=== PATIENT | female | born 1985 | race Caucasian/White ===

== ENCOUNTER 2017-08-02 18:08 | Emergency (ER) | payer OTHER ==
[2017-08-02] MEDS ORDERED: SODIUM CHLORIDE 0.9% 1,000 ML IV ONE ×2 (18:29)
[2017-08-02 18:50] LABS: BASOPHILS % (AUTO) 0.2 %; EOSINOPHILS # (AUTO) 0.1 10^3/uL (0.0-0.7); HGB - HEMOGLOBIN 9.5 g/dL (12.0-16.0); LYMPHOCYTES # (AUTO) 1.3 10^3/uL (1.5-3.5); LYMPHOCYTES % (AUTO) 15.2 %; MEAN CORPUSCULAR HEMOGLOBIN 23.8 pg (27.0-31.0); MEAN CORPUSCULAR HGB CONC 32.1 g/dL (32.0-36.0); MEAN CORPUSCULAR VOLUME 73.9 fL (81.0-99.0); MEAN PLATELET VOLUME 6.1 fL (7.9-10.8); MONOCYTES # (AUTO) 0.5 10^3/uL (0.0-1.0); MONOCYTES % (AUTO) 5.7 %; NEUTROPHILS # (AUTO) 6.7 10^3/uL (1.5-6.6); NEUTROPHILS % (AUTO) 77.9 %; PLT - PLATELET COUNT 500 10^3/uL (130-450); RED BLOOD COUNT 3.99 10^6/uL (4.20-5.40); RED CELL DISTRIBUTION WIDTH 15.9 % (12.0-15.0); WHITE BLOOD COUNT 8.6 x10^3/uL (4.8-10.8)
[2017-08-02 19:02] LABS: ALBUMIN 2.3 g/dL (3.2-5.5); ALBUMIN/GLOBULIN RATIO 0.6 (1.0-2.2); BILIRUBIN,TOTAL 0.3 mg/dL (0.2-1.0); CREATININE 0.8 mg/dL (0.4-1.0)
[2017-08-02] MEDS ORDERED: predniSONE 20 MG TABLET PO STA (19:50)
--- NOTE | 2017-08-02 19:53 | ED Physician Documentation ---
History of Present Illness - Stated complaint Stated Complaint: RASH,LIGHTHEADED - Chief complaint Chief Complaint: General - History obtained from History obtained from: Patient - History of Present Illness Timing: How many weeks ago (3) Pain level max: 3 Pain level now: 2 Improved by: nothing Worsened by: nothing - Additonal information Additional information: Patient is a 32-year-old female with long complicated history of Crohn's disease , failed multiple medications most recently was on Stelara for an investigative medication, is still currently on Stelara. States her diarrhea is unchanged. She has been feeling slightly lightheaded today. Her main concern today is that since July 08 she has had a rash over her trunk. The rash is mainly erythematous, occasional pustules. Has tried multiple creams for this without relief. She has not had any fevers. Has not seen her GI specialist for this. She is not currently on a clinical trial. Review of Systems Constitutional: denies: Fever, Chills Ears: denies: Ear pain Nose: denies: Rhinorrhea / runny nose, Congestion Cardiac: denies: Chest pain / pressure Respiratory: denies: Cough GI: reports: Diarrhea (chronic and unchanged). denies: Nausea, Vomiting : denies: Dysuria, Frequency, Hesitancy, Now EGA Musculoskeletal: denies: Neck pain, Back pain PD PAST MEDICAL HISTORY - Past Medical History Past Medical History: Yes Cardiovascular: Other Respiratory: Shortness of breath Neuro: Motion sickness GI: Ulcers, C.difficile, Hemorrhoids, Crohn's disease, Other Psych: Depression, Anxiety, Obsessive compulsive disorder Musculoskeletal: Fatigue Other Past Medical History: Chrohns. tachycardia - Past Surgical History Past Surgical History: No - Present Medications Home Medications: Ambulatory Orders Medication Instructions Recorded Confirmed Amitriptyline HCl 10 mg PO DAILY PM 08/02/17 08/02/17 Bupropion HCl [Wellbutrin Xl] 300 mg PO DAILY PM 08/02/17 08/02/17 Folic Acid 2 mg PO DAILY 08/02/17 08/02/17 Furosemide [Lasix] 40 mg PO DAILY 08/02/17 08/02/17 Levonorgestrel [Mirena] 1 each IY 08/02/17 Potassium Chloride [Klor-Con 10 meq PO DAILY 08/02/17 08/02/17 Sprinkle] Ustekinumab [Stelara] 130 mg IV DAILY PM 08/02/17 08/02/17 oxyCODONE [Roxicodone] 10 mg PO Q6H 08/02/17 08/02/17 predniSONE [Prednisone] 40 mg PO DAILY #10 tablet 08/02/17 - Allergies Allergies/Adverse Reactions: Allergies Allergy/AdvReac Type Severity Reaction Status Date / Time gabapentin Allergy Intermediate Anxiety Verified 08/02/17 19:35 hydromorphone [From Dilaudid] Allergy Intermediate Itching Verified 08/02/17 19: 36 infliximab [From Remicade] Allergy Intermediate Hives Verified 08/02/17 19:35 NSAIDS (Non-Steroidal AdvReac Intermediate Unknown Verified 08/02/17 19:37 Anti-Inflamma - Social History Does the pt smoke?: No Smoking Status: Former smoker Does the pt drink ETOH?: No Does the pt have substance abuse?: No PD ED PE NORMAL - Vitals Vital signs reviewed: Yes - General General: Alert and oriented X 3, No acute distress - HEENT HEENT: Other (Dry lips) - Neck Neck: Supple, no meningeal sign - Cardiac Cardiac: RRR - Respiratory Respiratory: No respiratory distress, Clear bilaterally - Abdomen Abdomen: Soft, Non tender, Non distended - Derm Derm: Warm and dry, Other (Diffuse erythematous rash, mainly papular over the back and stomach, slightly on the thighs. Occasional pustules. No vesicles.) - Neuro Neuro: Alert and oriented X 3 Results - Vitals Vitals: Vital Signs - 24 hr 08/02/17 08/02/17 18:22 19:59 Temperature 36.7 C 36.9 C Heart Rate 113 H 108 H Respiratory 18 16 Rate Blood Pressure 106/70 100/62 O2 Saturation 100 100 Oxygen O2 Source Room air - Labs Labs: Laboratory Tests 08/02/17 08/02/17 18:41 18:41 WBC 8.6 RBC 3.99 L Hgb 9.5 L Hct 29.5 L MCV 73.9 L MCH 23.8 L MCHC 32.1 RDW 15.9 H Plt Count 500 H MPV 6.1 L Neut # 6.7 H Lymph # 1.3 L [place] # 0.5 Eos # 0.1 Baso # 0.0 Absolute Nucleated RBC 0.00 Nucleated RBC % 0.0 Sodium 136 Potassium 3.8 Chloride 104 Carbon Dioxide 27 Anion Gap 5.0 L BUN 12 Creatinine 0.8 Estimated GFR (MDRD) 82 L Glucose 95 Calcium 8.0 L Total Bilirubin 0.3 AST 15 ALT 13 Alkaline Phosphatase 76 Total Protein 6.0 L Albumin 2.3 L Globulin 3.7 Albumin/Globulin Ratio 0.6 L Lipase 16 L PD MEDICAL DECISION MAKING - ED course Complexity details: reviewed results, re-evaluated patient, considered differential, d/w patient ED course: Patient is a 32-year-old female who presents to the emergency department with what appears to be dehydration and a rash. Unclear etiology of the rash, nonspecific pustular dermatitis. Will trial on steroids and see how she progresses. Recently moved to the [place] and will refer her to [facility] for primary care provider as well as family dermatology for follow-up. She receives most of her care at the [facility] in [place]. Recently moved here from [place]. Patient is well-appearing, nontoxic. Afebrile. Patient counseled regarding signs and symptoms for which I believe and urgent re-evaluation would be necessary. Patient with good understanding of and agreement to plan and is comfortable going home at this time This document was made in part using voice recognition software. While efforts are made to proofread this document, sound alike and grammatical errors may occur.. Anemia is chronic and unchanged. Patient also states she has chronic tachycardia Departure - Departure Disposition: 01 Home, Self Care Clinical Impression: Dermatitis, Psoriasis with pustules Condition: Good Instructions: ED Dermatitis Non Specific Rash Follow-Up: your,doctor in 1week [Other] [facility] [Provider Group] [facility] [Provider Group] Prescriptions: predniSONE [Prednisone] 40 mg PO DAILY #10 tablet Comments: Return if you worsen. Take all steroids until gone. Discharge Date/Time: 08/02/17 20:08
[2017-08-02 20:00] VITALS: BP 100/62
== END 2017-08-02 20:08 | disposition home or self-care (01) ==
LOC: ED 18:08
DX: L30.9 Dermatitis, unspecified (principal); L40.9 Psoriasis, unspecified; L08.9 Local infection of the skin and subcutaneous tissue, unspecified; R00.0 Tachycardia, unspecified; Z87.891 Personal history of nicotine dependence
CPT/HCPCS: 36415; 80053; 83690; 85025; 96360; 99283; J7512

== ENCOUNTER 2017-10-20 12:58 | Emergency (ER) | payer OTHER ==
[2017-10-20 13:07] VITALS: BP 106/67
[2017-10-20] MEDS ORDERED: MORPHINE 10 MG/ML VIAL IVP STA (13:19)
[2017-10-20] MEDS ORDERED: ONDANSETRON 4 MG/2 ML VIAL IVP STA (13:19)
[2017-10-20] MEDS ORDERED: methylPREDNISolone SUCCINATE 125 MG/2 ML VIAL IVP STA (13:19)
[2017-10-20] MEDS ORDERED: SODIUM CHLORIDE 0.9% 1,000 ML IV ONE (13:19)
[2017-10-20] MEDS ORDERED: PANTOPRAZOLE 40 MG VIAL IVP STA (13:19)
[2017-10-20] MEDS ORDERED: KETOROLAC 30 MG/ML VIAL IVP STA (13:19)
[2017-10-20] MEDS ORDERED: CYANOCOBALAMIN 1,000 MCG/ML VIAL IM ONE (13:20)
--- NOTE | 2017-10-20 13:23 | ED Physician Documentation ---
History of Present Illness - Stated complaint Stated Complaint: PAIN ALL OVER - Chief complaint Chief Complaint: Ext Problem - History obtained from History obtained from: Patient - History of Present Illness Timing: Yesterday (32-year-old woman with history of Crohn's disease, currently only on prednisone at 20 mg a day and undergoing a long taper and oxycodone per her pain management physician. Since yesterday she has had burning pain from the knees down on both sides. 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 There is no associated fever. Of note she also has baseline tachycardia and says her usual heart rate is about 120. She has been taking a lot of Aleve for this, she notes that though NSAIDs are listed as an allergy, she is has a history of gastritis and it is not a true allergy.) Review of Systems Constitutional: reports: Fatigue. denies: Fever, Chills Cardiac: denies: Chest pain / pressure, Palpitations Respiratory: denies: Dyspnea, Cough PD PAST MEDICAL HISTORY - Past Medical History Cardiovascular: Other Respiratory: Shortness of breath Neuro: Motion sickness GI: Ulcers, C.difficile, Hemorrhoids, Crohn's disease, Other Psych: Depression, Anxiety, Obsessive compulsive disorder Musculoskeletal: Fatigue - Past Surgical History Past Surgical History: No - Present Medications Home Medications: Ambulatory Orders Medication Instructions Recorded Confirmed Amitriptyline HCl 10 mg PO DAILY PM 08/02/17 08/02/17 Bupropion HCl [Wellbutrin Xl] 300 mg PO DAILY PM 08/02/17 08/02/17 Folic Acid 2 mg PO DAILY 08/02/17 08/02/17 Furosemide [Lasix] 40 mg PO DAILY 08/02/17 08/02/17 Levonorgestrel [Mirena] 1 each IY 08/02/17 Potassium Chloride [Klor-Con 10 meq PO DAILY 08/02/17 08/02/17 Sprinkle] Ustekinumab [Stelara] 130 mg IV DAILY PM 08/02/17 08/02/17 oxyCODONE [Roxicodone] 10 mg PO Q6H 08/02/17 08/02/17 predniSONE [Prednisone] 40 mg PO DAILY #10 tablet 08/02/17 Oxycodone HCl 10 mg PO Q4H PRN #14 tablet 10/20/17 predniSONE [Deltasone] 60 mg PO DAILY 5 Days tablet 10/20/17 - Allergies Allergies/Adverse Reactions: Allergies Allergy/AdvReac Type Severity Reaction Status Date / Time gabapentin Allergy Intermediate Anxiety Verified 10/20/17 13:07 hydromorphone [From Dilaudid] Allergy Intermediate Itching Verified 10/20/17 13: 07 infliximab [From Remicade] Allergy Intermediate Hives Verified 10/20/17 13:07 adhesive Allergy Hives Verified 10/20/17 13:08 NSAIDS (Non-Steroidal AdvReac Intermediate Unknown Verified 10/20/17 13:07 Anti-Inflamma - Social History Does the pt smoke?: No Smoking Status: Former smoker Does the pt drink ETOH?: No Does the pt have substance abuse?: No PD ED PE NORMAL - Vitals Vital signs reviewed: Yes - General General: Alert and oriented X 3, No acute distress - HEENT HEENT: PERRL, EOMI - Neck Neck: Supple, no meningeal sign, No bony TTP - Cardiac Cardiac: Other (Tachycardic, regular, no murmur) - Respiratory Respiratory: No respiratory distress, Clear bilaterally - Abdomen Abdomen: Normal bowel sounds, Soft, Non tender - Extremities Extremities: Other (She is tender to the heels on both sides, there is no warmth or redness. She has a lot of pain with ankle motion but the ankles themselves are nontender. She has normal patellar reflexes bilaterally and sensation throughout.) - Neuro Neuro: Alert and oriented X 3 Eye Opening: Spontaneous Motor: Obeys Commands Verbal: Oriented GCS Score: 15 - Psych Psych: Normal mood, Normal affect Results - Vitals Vitals: Vital Signs - 24 hr 10/20/17 13:03 Temperature 36.6 C Heart Rate 141 H Respiratory 14 Rate Blood Pressure 106/67 O2 Saturation 100 Oxygen O2 Source Room air - Labs Labs: Laboratory Tests 10/20/17 10/20/17 13:40 13:40 WBC 11.4 H RBC 4.14 L Hgb 8.4 L Hct 27.7 L MCV 66.8 L MCH 20.3 L MCHC 30.4 L RDW 17.8 H Plt Count 847 H* MPV 5.8 L Neut # 8.9 H Lymph # 1.8 [place] # 0.7 Eos # 0.0 Baso # 0.0 Absolute Nucleated RBC 0.00 Nucleated RBC % 0.0 Manual Slide Review Indicated Sodium 133 L Potassium 3.8 Chloride 98 L Carbon Dioxide 30 Anion Gap 5.0 L BUN 9 Creatinine 0.8 Estimated GFR (MDRD) 82 L Glucose 95 Calcium 8.4 L Total Bilirubin 0.2 AST 15 ALT 11 Alkaline Phosphatase 85 Total Protein 6.8 Albumin 2.5 L Globulin 4.3 H Albumin/Globulin Ratio 0.6 L Lipase 14 L Serum HCG, Qual NEGATIVE PD MEDICAL DECISION MAKING - ED course ED course: 32-year-old woman with bad Crohn's and extraintestinal manifestation presents with severe pain of lower extremities, and a neuropathic type pattern. After the administration of IV fluids, Toradol, morphine she was feeling much better and had regained range of motion her ankles. We discussed her labs at length and the need for follow-up. Departure - Departure Disposition: Home, Self Care Clinical Impression: Neuropathy, Thrombocytosis Crohns disease Qualifiers: Gastrointestinal tract location: small and large intestine Digestive disease complication type: with fistula Qualified Code(s): K50.813 - Crohn's disease of both small and large intestine with fistula Anemia Qualifiers: Anemia type: iron deficiency Iron deficiency anemia type: chronic blood loss Qualified Code(s): D50.0 - Iron deficiency anemia secondary to blood loss ( chronic) Condition: Good Record reviewed to determine appropriate education?: Yes Instructions: Disease Crohn Dc Follow-Up: Junior Yoder MD [Provider Admit Priv/Credential] - Danilo Mg MD [Provider Admit Priv/Credential] - Prescriptions: Oxycodone HCl 10 mg PO Q4H PRN #14 tablet PRN Reason: Pain predniSONE [Deltasone] 60 mg PO DAILY 5 Days tablet Comments: Increasing your prednisone to 60 mg a day starting tomorrow (she had an IV dose larger than that here) just for 5 more days, then back to your current taper 20 mg a day. Let your pain management doctor know that we gave you a prescription of oxycodone here, call them today. Also as discussed unit primary care follow- up, consider Dr. Yoder in [place] listed on this form and hematology follow- up, consider Dr. Mg also listed on this form. Return if worse.
[2017-10-20 13:57] LABS: BASOPHILS % (AUTO) 0.2 %; EOSINOPHILS % (AUTO) 0.2 %; HGB - HEMOGLOBIN 8.4 g/dL (12.0-16.0); LYMPHOCYTES # (AUTO) 1.8 10^3/uL (1.5-3.5); LYMPHOCYTES % (AUTO) 15.4 %; MEAN CORPUSCULAR HEMOGLOBIN 20.3 pg (27.0-31.0); MEAN CORPUSCULAR HGB CONC 30.4 g/dL (32.0-36.0); MEAN CORPUSCULAR VOLUME 66.8 fL (81.0-99.0); MEAN PLATELET VOLUME 5.8 fL (7.9-10.8); MONOCYTES # (AUTO) 0.7 10^3/uL (0.0-1.0); MONOCYTES % (AUTO) 6.2 %; NEUTROPHILS # (AUTO) 8.9 10^3/uL (1.5-6.6); RED BLOOD COUNT 4.14 10^6/uL (4.20-5.40); RED CELL DISTRIBUTION WIDTH 17.8 % (12.0-15.0); WHITE BLOOD COUNT 11.4 x10^3/uL (4.8-10.8)
[2017-10-20 14:00] LABS: PLT - PLATELET COUNT 847 10^3/uL (130-450)
[2017-10-20 14:08] LABS: ALBUMIN 2.5 g/dL (3.2-5.5); ALBUMIN/GLOBULIN RATIO 0.6 (1.0-2.2); ALKALINE PHOSPHATASE 85 IU/L (42-121); ALT ALANINE AMINOTRANSFERASE 11 IU/L (10-60); AST ASPARTATE AMINOTRANSFERASE 15 IU/L (10-42); BILIRUBIN,TOTAL 0.2 mg/dL (0.2-1.0); BUN - BLOOD UREA NITROGEN 9 mg/dL (6-20); CALCIUM 8.4 mg/dL (8.5-10.3); CARBON DIOXIDE - CO2 30 mmol/L (21-32); CHLORIDE 98 mmol/L (101-111); CREATININE 0.8 mg/dL (0.4-1.0); GFR - MDRD 82 (>89); GLUCOSE 95 mg/dL (70-100); LIPASE 14 U/L (22-51); SODIUM 133 mmol/L (135-145); TOTAL PROTEIN 6.8 g/dL (6.7-8.2)
[2017-10-20 14:12] LABS: HCG,QUALITATIVE BLOOD NEGATIVE
[2017-10-20 14:36] LABS: PLATELET ESTIMATE, MANUAL INCREASED (>450,000) (NORMAL); PLATELET MORPHOLOGY 1+ GIANT PLATELETS (NORMAL)
--- NOTE | 2017-11-05 19:18 | ED Physician Documentation ---
ED Addendum - Addendum Addendum: 11/05/17 19:17 Call from pharmacy, she was just presenting with her oxycodone prescription today in the wanted to know if they should still fill it. They also mentioned that she had filled her routine oxycodone in the interim. Given that I recommended to them that they not fill her prescription since it is almost 3 weeks old at this point and recommended that they ask her to call her pain management physician.
== END 2017-10-20 14:45 | disposition home or self-care (01) ==
LOC: ED 12:58
DX: G62.9 Polyneuropathy, unspecified (principal); K50.813 Crohn's disease of both small and large intestine with fistula; D50.0 Iron deficiency anemia secondary to blood loss (chronic); D47.3 Essential (hemorrhagic) thrombocythemia; R00.0 Tachycardia, unspecified; Z79.52 Long term (current) use of systemic steroids; F32.9 Major depressive disorder, single episode, unspecified; F41.9 Anxiety disorder, unspecified
CPT/HCPCS: 36415; 80053; 82607; 83690; 84703; 85025; 96372; 96374; 96375; 99283; 99284

== ENCOUNTER 2017-12-25 10:44 | Outpatient (CLI) | payer OTHER ==
[2017-12-25 19:19] LABS: BASOPHILS % (AUTO) 0.2 %; EOSINOPHILS % (AUTO) 0.3 %; HGB - HEMOGLOBIN 8.1 g/dL (12.0-16.0); LYMPHOCYTES # (AUTO) 0.8 10^3/uL (1.5-3.5); LYMPHOCYTES % (AUTO) 8.9 %; MEAN CORPUSCULAR HEMOGLOBIN 19.5 pg (27.0-31.0); MEAN CORPUSCULAR HGB CONC 29.1 g/dL (32.0-36.0); MEAN PLATELET VOLUME 6.2 fL (7.9-10.8); MEAN RETIC VALUE 94.5; MONOCYTES # (AUTO) 0.5 10^3/uL (0.0-1.0); MONOCYTES % (AUTO) 5.8 %; NEUTROPHILS # (AUTO) 7.7 10^3/uL (1.5-6.6); NEUTROPHILS % (AUTO) 84.8 %; PLT - PLATELET COUNT 600 10^3/uL (130-450); RED BLOOD COUNT 4.15 10^6/uL (4.20-5.40); RED CELL DISTRIBUTION WIDTH 18.6 % (12.0-15.0); WHITE BLOOD COUNT 9.1 x10^3/uL (4.8-10.8)
[2017-12-25 19:22] LABS: % IRON SATURATION 4 % (20-50); ALBUMIN 2.2 g/dL (3.2-5.5); ALBUMIN/GLOBULIN RATIO 0.5 (1.0-2.2); ALKALINE PHOSPHATASE 84 IU/L (42-121); ALT ALANINE AMINOTRANSFERASE 10 IU/L (10-60); AST ASPARTATE AMINOTRANSFERASE 14 IU/L (10-42); BILIRUBIN,TOTAL 0.2 mg/dL (0.2-1.0); BUN - BLOOD UREA NITROGEN 11 mg/dL (6-20); CALCIUM 8.2 mg/dL (8.5-10.3); CARBON DIOXIDE - CO2 29 mmol/L (21-32); CHLORIDE 98 mmol/L (101-111); CHOL/HDL RATIO 2.3 (<4.4); CHOLESTEROL 113 mg/dL; CREATININE 0.9 mg/dL (0.4-1.0); GFR - MDRD 72 (>89); GLUCOSE 85 mg/dL (70-100); HDL CHOLESTEROL 50 mg/dL; IRON 9 ug/dL (28-170); LDL CHOLESTEROL,CALCULATED 43 mg/dL; LDL/HDL RATIO 0.9 (<4.4); SODIUM 133 mmol/L (135-145); TOTAL IRON BINDING CAPACITY 234 ug/dL (250-450); TOTAL PROTEIN 6.3 g/dL (6.7-8.2); TRANSFERRIN 167 mg/dL (192-382); VLDL CHOLESTEROL 20 mg/dL
[2017-12-25 19:27] LABS: THYROID STIMULATING HORMONE 3.82 uIU/mL (0.34-5.60)
[2017-12-25 19:33] LABS: FERRITIN 34.4 ng/mL (11.0-306.8)
[2017-12-25 19:35] LABS: FOLATE 19.29 ng/mL (5.90 - >24.8)
[2017-12-25 20:28] LABS: PLATELET ESTIMATE, MANUAL INCREASED (>450,000) (NORMAL); PLATELET MORPHOLOGY NORMAL APPEARANCE (NORMAL)
== END 2017-12-25 10:45 | disposition home or self-care (01) ==
LOC: LAB.WCP 10:44
PROVIDERS: ATTEND Family Medicine
DX: K27.9 Peptic ulcer, site unspecified, unspecified as acute or chronic, without hemorrhage or perforation (principal); K50.90 Crohn's disease, unspecified, without complications; D64.9 Anemia, unspecified
CPT/HCPCS: 36415; 80053; 80061; 82607; 82728; 82746; 83540; 83721; 84443; 84466; 85025; 85044

== ENCOUNTER 2018-02-06 18:01 | Emergency (ER) | payer OTHER ==
[2018-02-06 18:31] LABS: BASOPHILS % (AUTO) 0.3 %; EOSINOPHILS % (AUTO) 0.1 %; LYMPHOCYTES % (AUTO) 6.7 %; MEAN CORPUSCULAR HEMOGLOBIN 18.4 pg (27.0-31.0); MEAN CORPUSCULAR HGB CONC 28.7 g/dL (32.0-36.0); MEAN CORPUSCULAR VOLUME 64.1 fL (81.0-99.0); MEAN PLATELET VOLUME 5.5 fL (7.9-10.8); NEUTROPHILS % (AUTO) 87.9 %; RED BLOOD COUNT 4.36 10^6/uL (4.20-5.40); RED CELL DISTRIBUTION WIDTH 19.1 % (12.0-15.0)
[2018-02-06] MEDS ORDERED: MORPHINE 10 MG/ML VIAL IVP STA ×3 (18:36→23:12)
[2018-02-06] MEDS ORDERED: methylPREDNISolone SUCCINATE 125 MG/2 ML VIAL IVP STA (18:36)
[2018-02-06] MEDS ORDERED: METOCLOPRAMIDE 10 MG/2 ML VIAL IVP STA (18:36)
[2018-02-06] MEDS ORDERED: SODIUM CHLORIDE 0.9% 1,000 ML IV ONE (18:36)
--- NOTE | 2018-02-06 18:40 | ED Physician Documentation ---
PD HPI ABD PAIN - Stated complaint Stated Complaint: ABD PX - Chief complaint Chief Complaint: Abd Pain - History obtained from History obtained from: Patient - History of Present Illness Timing - onset: Yesterday (33-year-old woman with history of Crohn's, she is failed most of the immune modulators and is currently on prednisone 10 mg twice a day which she has been stable out for the last 2 months. She also has a history of iron deficiency anemia. She has never had abdominal surgery. Over the last day she has developed progressive central and diffuse sharp stabbing abdominal pain that does not radiate. It is associated with nausea but no vomiting. She also notes decreased flatus and bowel movement since yesterday. No fevers.) Review of Systems Ten Systems: 10 systems reviewed and negative Constitutional: reports: Fatigue. denies: Fever, Chills Cardiac: denies: Chest pain / pressure, Palpitations Respiratory: denies: Dyspnea, Cough GI: reports: Abdominal Pain, Nausea, Constipation. denies: Vomiting PD PAST MEDICAL HISTORY - Past Medical History Cardiovascular: Other Respiratory: Shortness of breath GI: Ulcers, C.difficile, Hemorrhoids, Crohn's disease, Other Psych: Depression, Anxiety, Obsessive compulsive disorder Musculoskeletal: Fatigue - Past Surgical History Past Surgical History: No General: Colonoscopy, EGD - Present Medications Home Medications: Ambulatory Orders Medication Instructions Recorded Confirmed Amitriptyline HCl 10 mg PO DAILY PM 08/02/17 02/01/18 Bupropion HCl [Wellbutrin Xl] 300 mg PO DAILY PM 08/02/17 02/01/18 Folic Acid 2 mg PO DAILY 08/02/17 02/01/18 Furosemide [Lasix] 40 mg PO DAILY 08/02/17 02/01/18 Levonorgestrel [Mirena] 1 each IY ONCE 08/02/17 02/01/18 Potassium Chloride [Klor-Con 10 meq PO DAILY 08/02/17 02/01/18 Sprinkle] Oxycodone HCl 10 mg PO Q4H PRN #14 tablet 10/20/17 02/01/18 predniSONE [Prednisone] 1 tab ORAL BID 02/01/18 02/01/18 - Allergies Allergies/Adverse Reactions: Allergies Allergy/AdvReac Type Severity Reaction Status Date / Time gabapentin Allergy Intermediate Anxiety Verified 02/06/18 18:07 hydromorphone [From Dilaudid] Allergy Intermediate Itching Verified 02/06/18 18: 07 infliximab [From Remicade] Allergy Intermediate Hives Verified 02/06/18 18:07 adhesive Allergy Hives Verified 02/06/18 18:07 NSAIDS (Non-Steroidal AdvReac Intermediate Unknown Verified 02/06/18 18:07 Anti-Inflamma - Social History Does the pt smoke?: No Smoking Status: Former smoker Does the pt drink ETOH?: No Does the pt have substance abuse?: No - Immunizations Immunizations are current?: Yes PD ED PE NORMAL - Vitals Vital signs reviewed: Yes - General General: Alert and oriented X 3, Other (She appears overtly uncomfortable) - HEENT HEENT: PERRL, EOMI - Neck Neck: Supple, no meningeal sign, No bony TTP - Cardiac Cardiac: RRR, No murmur - Respiratory Respiratory: No respiratory distress, Clear bilaterally - Abdomen Abdomen: Other (Soft with normal bowel sounds, but significant diffuse tenderness especially in the lower abdomen.) - Back Back: No CVA TTP, No spinal TTP - Derm Derm: Normal color, Warm and dry - Extremities Extremities: No edema, No calf tenderness / cord - Neuro Neuro: Alert and oriented X 3, Normal speech - Psych Psych: Normal mood, Normal affect Results - Vitals Vitals: Vital Signs - 24 hr 02/06/18 02/06/18 02/06/18 18:04 20:33 21:46 Temperature 36.1 C L Heart Rate 120 H 116 H 112 H Respiratory 16 16 16 Rate Blood Pressure 111/69 91/54 L 95/64 O2 Saturation 100 100 100 Oxygen O2 Source Room air - Labs Labs: Laboratory Tests 02/06/18 02/06/18 02/06/18 18:10 18:10 18:20 WBC 24.0 H RBC 4.36 Hgb 8.0 L Hct 27.9 L MCV 64.1 L MCH 18.4 L MCHC 28.7 L RDW 19.1 H Plt Count 972 H* MPV 5.5 L Neut # (Auto) Not Reportable Lymph # (Auto) Not Reportable [place] # (Auto) Not Reportable Eos # (Auto) Not Reportable Baso # (Auto) Not Reportable Absolute Nucleated RBC Not Reportable Total Counted 100 Band Neuts % (Manual) 14 H Abnorm Lymph % (Manual) 0 Nucleated RBC % Not Reportable Neutrophils # (Manual) 22.1 H Lymphocytes # (Manual) 1.2 L Monocytes # (Manual) 0.7 Eosinophils # (Manual) 0.0 Basophils # (Manual) 0.0 Differential Comment MANUAL DIFFERENTIAL Manual Slide Review Indicated WBC Morphology NORMAL APPEARANCE Platelet Estimate INCREASED (>450,000) Platelet Morphology NORMAL APPEARANCE RBC Morph Micro Appear 1+ POLYCHROMASIA Sodium Potassium Chloride Carbon Dioxide Anion Gap BUN Creatinine Estimated GFR (MDRD) Glucose Calcium Total Bilirubin AST ALT Alkaline Phosphatase Total Protein Albumin Globulin Albumin/Globulin Ratio Lipase Urine Color YELLOW Urine Clarity CLOUDY Urine pH 6.0 Ur Specific [place] >=1.030 H >=1.030 H Urine Protein NEGATIVE Urine Glucose (UA) NEGATIVE Urine Ketones NEGATIVE Urine Occult Blood NEGATIVE Urine Nitrite NEGATIVE Urine Bilirubin NEGATIVE Urine Urobilinogen 0.2 (NORMAL) Ur Leukocyte Esterase NEGATIVE Urine RBC None Seen Urine WBC 0-3 Ur Squamous Epith Cells NONE SEEN Amorphous Sediment Marked Urine Bacteria None Seen Ur Microscopic Review INDICATED Urine Culture Comments NOT INDICATED Urine HCG, Qual NEGATIVE 02/06/18 18:20 WBC RBC Hgb Hct MCV MCH MCHC RDW Plt Count MPV Neut # (Auto) Lymph # (Auto) [place] # (Auto) Eos # (Auto) Baso # (Auto) Absolute Nucleated RBC Total Counted Band Neuts % (Manual) Abnorm Lymph % (Manual) Nucleated RBC % Neutrophils # (Manual) Lymphocytes # (Manual) Monocytes # (Manual) Eosinophils # (Manual) Basophils # (Manual) Differential Comment Manual Slide Review WBC Morphology Platelet Estimate Platelet Morphology RBC Morph Micro Appear Sodium 130 L Potassium 3.9 Chloride 97 L Carbon Dioxide 27 Anion Gap 6.0 BUN 13 Creatinine 0.9 Estimated GFR (MDRD) 71 L Glucose 91 Calcium 8.3 L Total Bilirubin 0.8 AST 13 ALT 10 Alkaline Phosphatase 112 Total Protein 6.2 L Albumin 2.0 L Globulin 4.2 Albumin/Globulin Ratio 0.5 L Lipase 14 L Urine Color Urine Clarity Urine pH Ur Specific [place] Urine Protein Urine Glucose (UA) Urine Ketones Urine Occult Blood Urine Nitrite Urine Bilirubin Urine Urobilinogen Ur Leukocyte Esterase Urine RBC Urine WBC Ur Squamous Epith Cells Amorphous Sediment Urine Bacteria Ur Microscopic Review Urine Culture Comments Urine HCG, Qual - Rads (name of study) CT A/P Radiology: EMP read contemporaneously (1. Diffuse large bowel and distal small bowel inflammatory bowel disease. 2. There is a cluster of distorted right lower quadrant small bowel loops within interloop low density structure as detailed above suspicious for abscess. There is upstream small bowel dilatation. 3. No enterocutaneous fistula however right lower quadrant findings suggest penetrating/fistulas and disease. 4. Mild mesenteric lymphadenopathy.) PD MEDICAL DECISION MAKING - ED course ED course: 33-year-old woman with long-standing history of Crohn's, never operated on presents with severe abdominal pain and significant tenderness, workup shows significant leukocytosis with bandemia and a CT showing potential intra- abdominal abscess with small bowel obstruction and fistula. Spoke with the on- call surgeon here, who felt she should be referred to a tertiary center that specializes in Crohn's. I spoke with the patient and she has a GI doctor the [facility], Dr. Shahram Tapia and the transfer center was called at 8:24 PM. They called back around 9:25 PM, they do not immediately have a bed, but will get GI in touch with me, and she may have to board here for a bit before transfer. Accepted by Dr Madrid at [facility]. - Sepsis Event Vital Signs: Vital Signs - 24 hr 02/06/18 02/06/18 02/06/18 18:04 20:33 21:46 Temperature 36.1 C L Heart Rate 120 H 116 H 112 H Respiratory 16 16 16 Rate Blood Pressure 111/69 91/54 L 95/64 O2 Saturation 100 100 100 Oxygen O2 Source Room air Departure - Departure Disposition: 02 Transfer Acute Care Hosp Clinical Impression: Thrombocytosis, Intra-abdominal abscess, SBO (small bowel obstruction) Crohns disease Qualifiers: Gastrointestinal tract location: small and large intestine Digestive disease complication type: with abscess Qualified Code(s): K50.814 - Crohn's disease of both small and large intestine with abscess Anemia Qualifiers: Anemia type: iron deficiency Iron deficiency anemia type: chronic blood loss Qualified Code(s): D50.0 - Iron deficiency anemia secondary to blood loss ( chronic) Condition: Serious
[2018-02-06 18:42] LABS: ALBUMIN/GLOBULIN RATIO 0.5 (1.0-2.2); BILIRUBIN,TOTAL 0.8 mg/dL (0.2-1.0); CALCIUM 8.3 mg/dL (8.5-10.3); CREATININE 0.9 mg/dL (0.4-1.0); TOTAL PROTEIN 6.2 g/dL (6.7-8.2)
[2018-02-06 18:46] LABS: PLT - PLATELET COUNT 972 10^3/uL (130-450)
[2018-02-06 18:47] LABS: ABNORMAL LYMPHS % (MANUAL) 0 %
[2018-02-06] MEDS ORDERED: IOPAMIDOL-300 100 ML VIAL ONE (18:47)
[2018-02-06 18:49] LABS: BAND NEUTROPHILS % (MANUAL) 14 %; LYMPHOCYTES # (MANUAL) 1.2 10^3/uL (1.5-3.5); LYMPHOCYTES % (MANUAL) 5 %; MONOCYTES # (MANUAL) 0.7 10^3/uL (0.0-1.0); NEUTROPHILS # (MANUAL) 22.1 10^3/uL (1.5-6.6); NEUTROPHILS % (MANUAL) 78 %
[2018-02-06 18:50] LABS: DIFFERENTIAL COMMENT MANUAL DIFFERENTIAL; PLATELET ESTIMATE, MANUAL INCREASED (>450,000) (NORMAL); PLATELET MORPHOLOGY NORMAL APPEARANCE (NORMAL)
[2018-02-06 19:00] LABS: BILIRUBIN,URINE NEGATIVE (NEGATIVE); GLUCOSE, URINE (UA) NEGATIVE (NEGATIVE); KETONES,URINE (UA) NEGATIVE (NEGATIVE); LEUKOCYTE ESTERASE, URINE NEGATIVE (NEGATIVE); NITRITE,URINE NEGATIVE (NEGATIVE); OCCULT BLOOD,URINE NEGATIVE (NEGATIVE); PROTEIN,URINE NEGATIVE (NEGATIVE); UROBILINOGEN,URINE 0.2 (NORMAL) E.U./dL (NORMAL)
[2018-02-06 19:03] LABS: CLARITY,URINE CLOUDY (CLEAR)
[2018-02-06 19:04] LABS: HCG UR QUAL NEGATIVE
[2018-02-06 19:18] LABS: AMORPHOUS SEDIMENT,UR Marked /LPF; BACTERIA,URINE None Seen /HPF (None Seen); RBC,URINE None Seen /HPF (0-5); SQUAMOUS EPITHELIAL CELL,UR NONE SEEN (<= Few)
[2018-02-06] MEDS ORDERED: IOPAMIDOL-300 100 ML VIAL IVP ONE (19:44)
--- NOTE | 2018-02-06 20:08 | CT Report ---
Procedure Date: 02/06/2018 Accession Number: [id number] / [id number] Procedure: CT - Abdomen/Pelvis W/ CPT Code: FULL RESULT: EXAM: CT ABDOMEN AND PELVIS EXAM DATE: 02/06/2018 07:45 PM. CLINICAL HISTORY: IV only, low abdominal pain. COMPARISONS: None. TECHNIQUE: Routine helical CT imaging was performed through the abdomen and pelvis. IV contrast: Isovue 300 100 mL. Enteric contrast: No. Reconstructions: Coronal and sagittal. In accordance with CT protocol optimization, one or more of the following dose reduction techniques were utilized for this exam: automated exposure control, adjustment of mA and/or KV based on patient size, or use of iterative reconstructive technique. FINDINGS: Lung Bases: Unremarkable. Liver: Triangular low density focus in the left hepatic lobe adjacent to the falciform ligament compatible with focal fat. The liver is otherwise normal. Gallbladder/Bile Ducts: Unremarkable. Spleen: Normal. Pancreas: Normal. Adrenal Glands: Normal. Kidneys: There is a 2 cm left renal cyst. The kidneys are otherwise normal. Peritoneal Cavity/Bowel: There is diffuse large bowel mucosal enhancement and mural thickening. Extensive inflammatory changes are seen in the right lower quadrant noting a cluster of tethered small bowel loops and distortion of the adjacent mesentery. There is mild to moderate upstream small bowel dilatation. There is a 4.2 x 2.5 cm low-density structure with irregular rim enhancement series 3 image 63. It is uncertain whether this represents interloop abscess or distorted small bowel loop. Numerous mildly enlarged right lower quadrant mesenteric lymph nodes seen. The appendix is not well-visualized. Pelvic Organs: IUD noted in satisfactory position. The urinary bladder is decompressed. No adnexal mass. Vasculature: No aneurysms or other significant abnormality. Bones: No significant abnormality. Other: None. IMPRESSION: 1. Diffuse large bowel and distal small bowel inflammatory bowel disease. 2. There is a cluster of distorted right lower quadrant small bowel loops with an interloop low density structure as detailed above suspicious for abscess. There is upstream small bowel dilatation. 3. No enterocutaneous fistula however right lower quadrant findings suggest penetrating/fistulizing disease. 4. Mild mesenteric lymphadenopathy. RAD[facility]
[2018-02-06] MEDS ORDERED: metroNIDAZOLE 500 MG/100 ML 500 MG/100 ML BAG IV ONE (20:18)
[2018-02-06] MEDS ORDERED: PIPERACILLIN/TAZOBACTAM 3.375 GM in SODIUM CHLORIDE 0.9% MINIBAG 100 ML IV STA (20:18)
[2018-02-06] MEDS ORDERED: DEXTROSE 5%-LACTATED RINGERS 1,000 ML IV SCH (22:00)
[2018-02-06 23:19] VITALS: BP 92/60
== END 2018-02-07 00:34 | disposition short-term general hospital (02) ==
LOC: ED 18:01
DX: D47.3 Essential (hemorrhagic) thrombocythemia (principal); K65.1 Peritoneal abscess; K56.609 Unspecified intestinal obstruction, unspecified as to partial versus complete obstruction; K50.814 Crohn's disease of both small and large intestine with abscess; D50.0 Iron deficiency anemia secondary to blood loss (chronic); D72.825 Bandemia; Z87.891 Personal history of nicotine dependence
CPT/HCPCS: 36415; 74177; 80053; 81001; 81025; 83690; 85025; 96361; 96365; 96367; 96375; 96376; 99284; 99285; J2765; Q9967; 81003; 87086

== ENCOUNTER 2018-03-26 08:00 | Outpatient (CLI) | payer OTHER ==
[2018-03-26 18:56] LABS: BASOPHILS % (AUTO) 0.1 %; EOSINOPHILS % (AUTO) 0.1 %; HGB - HEMOGLOBIN 12.1 g/dL (12.0-16.0); LYMPHOCYTES # (AUTO) 0.5 10^3/uL (1.5-3.5); LYMPHOCYTES % (AUTO) 5.8 %; MEAN CORPUSCULAR HEMOGLOBIN 27.9 pg (27.0-31.0); MEAN CORPUSCULAR HGB CONC 31.8 g/dL (32.0-36.0); MEAN CORPUSCULAR VOLUME 87.5 fL (81.0-99.0); MEAN PLATELET VOLUME 6.6 fL (7.9-10.8); MONOCYTES # (AUTO) 0.2 10^3/uL (0.0-1.0); MONOCYTES % (AUTO) 1.8 %; NEUTROPHILS # (AUTO) 8.5 10^3/uL (1.5-6.6); NEUTROPHILS % (AUTO) 92.2 %; PLT - PLATELET COUNT 572 10^3/uL (130-450); RED BLOOD COUNT 4.33 10^6/uL (4.20-5.40); RED CELL DISTRIBUTION WIDTH 24.7 % (12.0-15.0); WHITE BLOOD COUNT 9.2 x10^3/uL (4.8-10.8)
[2018-03-26 19:13] LABS: ALBUMIN 3.2 g/dL (3.2-5.5); ALBUMIN/GLOBULIN RATIO 0.8 (1.0-2.2); ALKALINE PHOSPHATASE 93 IU/L (42-121); ALT ALANINE AMINOTRANSFERASE < 10 IU/L (10-60); AST ASPARTATE AMINOTRANSFERASE 16 IU/L (10-42); BILIRUBIN,TOTAL 0.5 mg/dL (0.2-1.0); BUN - BLOOD UREA NITROGEN 8 mg/dL (6-20); CALCIUM 8.9 mg/dL (8.5-10.3); CARBON DIOXIDE - CO2 30 mmol/L (21-32); CHLORIDE 100 mmol/L (101-111); CREATININE 0.8 mg/dL (0.4-1.0); CRP HIGH SENSITIVITY 26.3 mg/L; GFR - MDRD 82 (>89); SODIUM 137 mmol/L (135-145); TOTAL PROTEIN 7.2 g/dL (6.7-8.2)
[2018-03-26 19:16] LABS: GLUCOSE 59 mg/dL (70-100)
[2018-03-26 19:34] LABS: PLATELET ESTIMATE, MANUAL INCREASED (>450,000) (NORMAL); PLATELET MORPHOLOGY NORMAL APPEARANCE (NORMAL)
== END 2018-03-26 08:01 | disposition home or self-care (01) ==
LOC: LAB.N 08:00
PROVIDERS: ATTEND Internal Medicine Gastroenterology
DX: K52.9 Noninfective gastroenteritis and colitis, unspecified (principal)
CPT/HCPCS: 36415; 80053; 85025; 85651; 86141

== ENCOUNTER 2018-04-12 13:19 | Outpatient (CLI) | payer OTHER ==
[2018-04-12 18:44] LABS: BASOPHILS % (AUTO) 0.3 %; EOSINOPHILS % (AUTO) 0.5 %; HGB - HEMOGLOBIN 11.3 g/dL (12.0-16.0); LYMPHOCYTES # (AUTO) 0.6 10^3/uL (1.5-3.5); LYMPHOCYTES % (AUTO) 7.5 %; MEAN CORPUSCULAR HEMOGLOBIN 28.8 pg (27.0-31.0); MEAN CORPUSCULAR HGB CONC 32.4 g/dL (32.0-36.0); MEAN CORPUSCULAR VOLUME 88.9 fL (81.0-99.0); MEAN PLATELET VOLUME 6.3 fL (7.9-10.8); MONOCYTES # (AUTO) 0.4 10^3/uL (0.0-1.0); NEUTROPHILS # (AUTO) 7.4 10^3/uL (1.5-6.6); NEUTROPHILS % (AUTO) 86.7 %; PLT - PLATELET COUNT 448 10^3/uL (130-450); RED BLOOD COUNT 3.93 10^6/uL (4.20-5.40); RED CELL DISTRIBUTION WIDTH 18.9 % (12.0-15.0); WHITE BLOOD COUNT 8.6 x10^3/uL (4.8-10.8)
[2018-04-12 19:14] LABS: ALBUMIN 2.9 g/dL (3.2-5.5); ALBUMIN/GLOBULIN RATIO 0.8 (1.0-2.2); BILIRUBIN,TOTAL 0.3 mg/dL (0.2-1.0); CALCIUM 8.5 mg/dL (8.5-10.3); CREATININE 0.6 mg/dL (0.4-1.0); CRP HIGH SENSITIVITY 32.8 mg/L; TOTAL PROTEIN 6.6 g/dL (6.7-8.2)
[2018-04-12 19:59] LABS: PLATELET ESTIMATE, MANUAL NORMAL (130-450,000) (NORMAL); PLATELET MORPHOLOGY NORMAL APPEARANCE (NORMAL)
== END 2018-04-12 13:20 | disposition home or self-care (01) ==
LOC: LAB.N 13:19
PROVIDERS: ATTEND Internal Medicine Gastroenterology
DX: K52.9 Noninfective gastroenteritis and colitis, unspecified (principal); K50.00 Crohn's disease of small intestine without complications
CPT/HCPCS: 36415; 80053; 85025; 85651; 86141

== ENCOUNTER 2018-09-03 23:48 | Emergency (ER) | payer OTHER ==
--- NOTE | 2018-09-04 00:05 | ED Physician Documentation ---
PD HPI LOWER EXT INJURY - Stated complaint Stated Complaint: FALL/R KNEE PX - Chief complaint Chief Complaint: Trauma Ext - History obtained from History obtained from: Patient - History of Present Illness PD HPI LOW EXT INJURY LOCATION: Right, Knee Type of injury: Fall Where injury occurred: Home Timing - onset: Enter time (1pm), Today Timing - duration: Hours Timing - details: Abrupt onset, Still present Improved by: Rest, Immobilization Worsened by: Moving, Palpating Associated symptoms: Swelling. No: Weakness, Numbness, Tingling Contributing factors: No: Anticoagulated Similar symptoms before: Has not had sx before Recently seen: Not recently seen - Additional information Additional information: 33-year-old female previously well was walking between a car along a small median and she twisted her ankle on the median and fell onto the concrete with her right knee and then rolled down a hill. She is complaining of pain to the right knee directly over the patella the area is swollen and very tender. She is able to bear some weight on the leg and she states that her ankle is entirely fine. Review of Systems Constitutional: denies: Fever, Chills, Myalgias Eyes: denies: Decreased vision Ears: denies: Ear pain Nose: denies: Congestion Respiratory: denies: Cough GI: denies: Vomiting, Constipation, Diarrhea PD PAST MEDICAL HISTORY - Past Medical History Cardiovascular: Other Respiratory: Shortness of breath GI: Ulcers, C.difficile, Hemorrhoids, Crohn's disease, Other Psych: Depression, Anxiety, Obsessive compulsive disorder Musculoskeletal: Fatigue - Past Surgical History Past Surgical History: No General: Colonoscopy, EGD - Present Medications Home Medications: Ambulatory Orders Medication Instructions Recorded Confirmed Amitriptyline HCl 10 mg PO DAILY PM 08/02/17 09/04/18 Bupropion HCl [Wellbutrin Xl] 300 mg PO DAILY PM 08/02/17 09/04/18 Folic Acid 2 mg PO DAILY 08/02/17 09/04/18 Furosemide [Lasix] 40 mg PO DAILY 08/02/17 09/04/18 Levonorgestrel [Mirena] 1 each IY ONCE 08/02/17 09/04/18 Potassium Chloride [Klor-Con 10 meq PO DAILY 08/02/17 09/04/18 Sprinkle] Oxycodone HCl 10 mg PO Q4H PRN #14 tablet 10/20/17 09/04/18 Tofacitinib Citrate [Xeljanz] 2 tab PO BID 03/01/18 09/04/18 - Allergies Allergies/Adverse Reactions: Allergies Allergy/AdvReac Type Severity Reaction Status Date / Time gabapentin Allergy Intermediate Anxiety Verified 09/03/18 23:53 hydromorphone [From Dilaudid] Allergy Intermediate Itching Verified 09/03/18 23:53 infliximab [From Remicade] Allergy Intermediate Hives Verified 09/03/18 23:53 adhesive Allergy Hives Verified 09/03/18 23:53 NSAIDS (Non-Steroidal AdvReac Intermediate Unknown Verified 09/03/18 23:53 Anti-Inflamma - Social History Does the pt smoke?: No Smoking Status: Former smoker Does the pt drink ETOH?: No Does the pt have substance abuse?: No - Immunizations Immunizations are current?: Yes PD ED PE NORMAL - Vitals Vital signs reviewed: Yes (tachy ) - General General: Alert and oriented X 3, No acute distress, Well developed/nourished - HEENT HEENT: Atraumatic, PERRL, EOMI - Respiratory Respiratory: No respiratory distress - Derm Derm: Normal color, Warm and dry, No rash - Extremities Extremities: No deformity, Other (There is swelling and tenderness to the patella on the right with abrasion directly over the patella. The knee is swollen, tender and has reduced ROM secondary to pain. The ligments are stable to testing. The ankle is without swelling or tenderness and sneha ROM. ) Results - Vitals Vitals: Vital Signs - 24 hr 09/03/18 23:53 Temperature 36.6 C Heart Rate 109 H Respiratory 16 Rate Blood Pressure 115/77 O2 Saturation 100 Oxygen O2 Source Room air - Rads (name of study) right knee Radiology: Prelim report reviewed (Impression: Transverse nondisplaced patellar fracture.), EMP read indepedently, See rad report PD MEDICAL DECISION MAKING - ED course Complexity details: reviewed results, re-evaluated patient, considered differential, d/w patient, d/w family ED course: 33-year-old female with a fall directly onto her right patella has a nondisplaced transverse patellar fracture. She is placed into a knee immobilizer and will FUWO. Departure - Departure Disposition: 01 Home, Self Care Clinical Impression: Patellar fracture Qualifiers: Encounter type: initial encounter Fracture type: closed Fracture morphology: transverse Fracture alignment: nondisplaced Laterality: right Qualified Code(s): S82.034A - Nondisplaced transverse fracture of right patella, initial encounter for closed fracture Condition: Stable Instructions: ED Fx Patella Follow-Up: Teddy Kincaid MD [Primary Care Provider] - [facility] [Provider Group]
--- NOTE | 2018-09-04 00:45 | XRAY Report ---
Reason: fall onto right knee patellar contusion Procedure Date: 09/04/2018 Accession Number: [id number] / [id number] Procedure: XR - Knee 4 View RT CPT Code: FULL RESULT: EXAM: RIGHT KNEE RADIOGRAPHY EXAM DATE: 09/04/2018 12:25 AM. CLINICAL HISTORY: Fall onto right knee patellar contusion. COMPARISON: None. TECHNIQUE: 5 views. FINDINGS: Bones: Transverse nondisplaced fracture through the inferior pole of the patella. No other right knee fracture seen. Joints: No dislocation. Joint effusion, presumably hemarthrosis. Soft Tissues: Anterior soft tissue swelling. IMPRESSION: Transverse nondisplaced patellar fracture. RADIA
[2018-09-04 01:16] VITALS: BP 128/76
== END 2018-09-04 01:13 | disposition home or self-care (01) ==
LOC: ED 23:48
DX: S82.034A Nondisplaced transverse fracture of right patella, initial encounter for closed fracture (principal); X50.1XXA Overexertion from prolonged static or awkward postures, initial encounter; W18.30XA Fall on same level, unspecified, initial encounter; Y93.01 Activity, walking, marching and hiking; Y92.89 Other specified places as the place of occurrence of the external cause; Z87.891 Personal history of nicotine dependence
CPT/HCPCS: 99283

== ENCOUNTER 2019-02-24 08:00 | Outpatient (CLI) | payer OTHER ==
[2019-02-24 18:28] LABS: BASOPHILS % (AUTO) 0.3 %; EOSINOPHILS # (AUTO) 0.1 10^3/uL (0.0-0.7); EOSINOPHILS % (AUTO) 1.1 %; HGB - HEMOGLOBIN 11.6 g/dL (12.0-16.0); LYMPHOCYTES # (AUTO) 0.8 10^3/uL (1.5-3.5); LYMPHOCYTES % (AUTO) 10.5 %; MEAN CORPUSCULAR HEMOGLOBIN 27.6 pg (27.0-31.0); MEAN CORPUSCULAR HGB CONC 30.4 g/dL (32.0-36.0); MEAN CORPUSCULAR VOLUME 90.7 fL (81.0-99.0); MEAN PLATELET VOLUME 8.5 fL (7.9-10.8); MONOCYTES # (AUTO) 0.5 10^3/uL (0.0-1.0); MONOCYTES % (AUTO) 7.6 %; NEUTROPHILS # (AUTO) 5.7 10^3/uL (1.5-6.6); NEUTROPHILS % (AUTO) 80.2 %; PLT - PLATELET COUNT 467 10^3/uL (130-450); RED BLOOD COUNT 4.21 10^6/uL (4.20-5.40); RED CELL DISTRIBUTION WIDTH 13.9 % (12.0-15.0); WHITE BLOOD COUNT 7.1 x10^3/uL (4.8-10.8)
[2019-02-24 19:02] LABS: ALBUMIN 2.8 g/dL (3.2-5.5); ALBUMIN/GLOBULIN RATIO 0.7 (1.0-2.2); BILIRUBIN,TOTAL 0.2 mg/dL (0.2-1.0); CALCIUM 8.4 mg/dL (8.5-10.3); CREATININE 0.8 mg/dL (0.4-1.0); CRP HIGH SENSITIVITY 46.7 mg/L; TOTAL PROTEIN 6.6 g/dL (6.7-8.2)
== END 2019-02-24 23:59 | disposition home or self-care (01) ==
LOC: LAB.N 08:00
PROVIDERS: ATTEND Internal Medicine Gastroenterology
DX: K50.113 Crohn's disease of large intestine with fistula (principal)
CPT/HCPCS: 36415; 80053; 85025; 85651; 86140; 86141

== ENCOUNTER 2019-03-12 22:15 | Emergency (ER) | payer OTHER ==
[2019-03-12 22:50] LABS: BASOPHILS % (AUTO) 0.2 %; EOSINOPHILS # (AUTO) 0.1 10^3/uL (0.0-0.7); EOSINOPHILS % (AUTO) 0.5 %; HGB - HEMOGLOBIN 11.7 g/dL (12.0-16.0); LYMPHOCYTES # (AUTO) 0.7 10^3/uL (1.5-3.5); LYMPHOCYTES % (AUTO) 6.6 %; MEAN CORPUSCULAR HGB CONC 32.3 g/dL (32.0-36.0); MEAN CORPUSCULAR VOLUME 83.6 fL (81.0-99.0); MEAN PLATELET VOLUME 8.5 fL (7.9-10.8); MONOCYTES # (AUTO) 0.6 10^3/uL (0.0-1.0); MONOCYTES % (AUTO) 5.8 %; NEUTROPHILS # (AUTO) 9.5 10^3/uL (1.5-6.6); NEUTROPHILS % (AUTO) 86.4 %; PLT - PLATELET COUNT 516 10^3/uL (130-450); RED BLOOD COUNT 4.33 10^6/uL (4.20-5.40); RED CELL DISTRIBUTION WIDTH 13.3 % (12.0-15.0)
--- NOTE | 2019-03-12 23:03 | XRAY Report ---
Reason: dyspnea Procedure Date: 03/12/2019 Accession Number: [id number] / [id number] Procedure: XR - Chest 2 View X-Ray CPT Code: 76209 FULL RESULT: EXAM: CHEST RADIOGRAPHY EXAM DATE: 03/12/2019 10:51 PM. CLINICAL HISTORY: Dyspnea. COMPARISON: None. TECHNIQUE: 2 views. FINDINGS: Lungs/Pleura: No focal opacities evident. No pleural effusion. No pneumothorax. Normal volumes. Mediastinum: Heart and mediastinal contours are unremarkable. Other: None. IMPRESSION: Normal 2-view chest radiography. RADIA
[2019-03-12 23:04] LABS: ALBUMIN 2.6 g/dL (3.2-5.5); ALBUMIN/GLOBULIN RATIO 0.7 (1.0-2.2); ALKALINE PHOSPHATASE 113 IU/L (42-121); ALT ALANINE AMINOTRANSFERASE < 10 IU/L (10-60); AST ASPARTATE AMINOTRANSFERASE 14 IU/L (10-42); BILIRUBIN,TOTAL < 0.2 mg/dL (0.2-1.0); BUN - BLOOD UREA NITROGEN 13 mg/dL (6-20); CALCIUM 8.5 mg/dL (8.5-10.3); CARBON DIOXIDE - CO2 26 mmol/L (21-32); CHLORIDE 98 mmol/L (101-111); GFR - MDRD 63 (>89); LIPASE 25 U/L (22-51); SODIUM 136 mmol/L (135-145); TOTAL PROTEIN 6.2 g/dL (6.7-8.2)
[2019-03-12 23:14] LABS: GLUCOSE 139 mg/dL (70-100)
--- NOTE | 2019-03-12 23:20 | ED Physician Documentation ---
PD HPI DYSPNEA - Stated complaint Stated Complaint: SOA - Chief complaint Chief Complaint: Resp - History obtained from History obtained from: Patient - History of Present Illness Timing - onset: Enter time (21:30), Today Timing - details: Abrupt onset, Still present in ED (improving since onset) Improved by: Other (no ameliorating factors) Worsened by: Other (no exacerbating factors) Associated symptoms: No: Fever, Cough, Hemoptysis, Wheezing, Chest pain / discomfort, Bilateral edema, Unilateral edema Similar symptoms before: Has not had sx before - Additional information Additional information: c/o sudden onset dyspnea, 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 Denies h/o similar symptoms. She was recently started on mycophenalate and yesterday had the dose doubled. Review of Systems Constitutional: denies: Fever, Chills, Sweats Cardiac: reports: Reviewed and negative Respiratory: reports: Dyspnea. denies: Cough, Hemoptysis, Wheezing GI: reports: Nausea, Diarrhea, Bloody / black stool (chronic). denies: Vomiting : denies: Dysuria, Frequency Musculoskeletal: reports: Joint pain (diffuse (not new)) Neurologic: denies: Generalized weakness, Focal weakness, Numbness PD PAST MEDICAL HISTORY - Past Medical History Past Medical History: Yes Cardiovascular: Other Respiratory: Shortness of breath GI: Ulcers, C.difficile, Hemorrhoids, Crohn's disease, Other Psych: Depression, Anxiety, Obsessive compulsive disorder Musculoskeletal: Fatigue - Past Surgical History Past Surgical History: No General: Colonoscopy, EGD - Present Medications Home Medications: Ambulatory Orders Medication Instructions Recorded Confirmed Amitriptyline HCl 10 mg PO DAILY PM 08/02/17 03/12/19 Bupropion HCl [Wellbutrin Xl] 300 mg PO DAILY PM 08/02/17 03/12/19 Folic Acid 2 mg PO DAILY 08/02/17 03/12/19 Furosemide [Lasix] 40 mg PO DAILY 08/02/17 03/12/19 Levonorgestrel [Mirena] 1 each IY ONCE 08/02/17 03/12/19 Potassium Chloride [Klor-Con 10 meq PO DAILY 08/02/17 03/12/19 Sprinkle] Oxycodone HCl 10 mg PO Q4H PRN #14 tablet 10/20/17 03/12/[address] [Voltlashawn] 1 tab PO BID 03/12/19 03/12/19 Mycophenolate Mofetil 3 tab PO BID 03/12/19 03/12/19 - Allergies Allergies/Adverse Reactions: Allergies Allergy/AdvReac Type Severity Reaction Status Date / Time gabapentin Allergy Intermediate Anxiety Verified 03/12/19 22:25 hydromorphone [From Dilaudid] Allergy Intermediate Itching Verified 03/12/19 22:25 infliximab [From Remicade] Allergy Intermediate Hives Verified 03/12/19 22:25 adhesive Allergy Hives Verified 03/12/19 22:25 NSAIDS (Non-Steroidal AdvReac Intermediate Unknown Verified 03/12/19 22:25 Anti-Inflamma - Social History Does the pt smoke?: No Smoking Status: Never smoker Does the pt drink ETOH?: No Does the pt have substance abuse?: No - Immunizations Immunizations are current?: Yes - POLST Patient has POLST: No PD ED PE NORMAL - Vitals Vital signs reviewed: Yes - General General: Alert and oriented X 3, No acute distress, Well developed/nourished - HEENT HEENT: Moist mucous membranes - Neck Neck: Supple, no meningeal sign - Cardiac Cardiac: No murmur - Respiratory Respiratory: No respiratory distress, Clear bilaterally - Abdomen Abdomen: Soft, Non tender - Derm Derm: Normal color, Warm and dry - Extremities Extremities: No edema - Neuro Neuro: Alert and oriented X 3 PD ED PE EXPANDED - Cardiac Cardiac: Tachy, Regular Rhythm Results - Vitals Vitals: Vital Signs - 24 hr 03/12/19 03/12/19 03/12/19 22:20 22:40 22:54 Temperature 36.7 C Heart Rate 128 H 124 H 123 H Respiratory 20 22 18 Rate Blood Pressure 96/70 96/70 95/62 O2 Saturation 100 100 99 03/13/19 03/13/19 00:53 01:15 Temperature 36.4 C L Heart Rate 114 H 102 H Respiratory 24 24 Rate Blood Pressure 101/71 95/74 O2 Saturation 97 99 Oxygen O2 Source Room air - EKG (time done) No standard instances Rate: Rate (enter#) (120), Tachy Rhythm: Sinus tachycardia [place]co: Normal Intervals: Normal [place] QRS: Normal Ischemia: Normal ST segments, T wave inversion (III, aVF) - Labs Labs: Laboratory Tests 03/12/19 03/12/19 03/12/19 22:40 22:40 22:40 WBC 11.0 H RBC 4.33 Hgb 11.7 L Hct 36.2 L MCV 83.6 MCH 27.0 MCHC 32.3 RDW 13.3 Plt Count 516 H MPV 8.5 Neut # (Auto) 9.5 H Lymph # (Auto) 0.7 L Mcdonald # (Auto) 0.6 Eos # (Auto) 0.1 Baso # (Auto) 0.0 Absolute Nucleated RBC 0.00 Nucleated RBC % 0.0 D-Dimer 753.6 H Sodium 136 Potassium 3.5 Chloride 98 L Carbon Dioxide 26 Anion Gap 12.0 BUN 13 Creatinine 1.0 Estimated GFR (MDRD) 63 L Glucose 139 H Calcium 8.5 Total Bilirubin < 0.2 L AST 14 ALT < 10 L Alkaline Phosphatase 113 Total Protein 6.2 L Albumin 2.6 L Globulin 3.6 Albumin/Globulin Ratio 0.7 L Lipase 25 - Rads (name of study) chest xray Radiology: Prelim report reviewed, See rad report CT chest (PE study) Radiology: Prelim report reviewed, See rad report PD MEDICAL DECISION MAKING - ED course Complexity details: reviewed old records, reviewed results, re-evaluated patient, considered differential, d/w patient, d/w family ED course: NAD during ED stay and had improvement in symptoms prior to my initial H+P, reported feeling further improvement on reevaluation after tests resulted. Reassuring test results which are also nondiagnostic; no etiology of her dyspnea [facility]. She is tachycardic, but says that this is chronic (says her resting heart rate tends to be 110s-120) Departure - Departure Disposition: 01 Home, Self Care Clinical Impression: Dyspnea Qualifiers: Dyspnea type: shortness of breath Qualified Code(s): R06.02 - Shortness of breath Condition: Good Instructions: ED Dyspnea Shortness of Breath Follow-Up: JAMEE MOODY MD [Primary Care Provider] - Discharge Date/Time: 03/13/19 01:16
--- NOTE | 2019-03-13 00:14 | CT Report ---
Reason: dyspnea Procedure Date: 03/12/2019 Accession Number: [id number] / [id number] Procedure: CT - ANGIO CHEST W/WO CPT Code: FULL RESULT: EXAM: CT ANGIOGRAM CHEST EXAM DATE: 03/12/2019 11:56 PM. CLINICAL HISTORY: Dyspnea. COMPARISON: ABDOMEN/PELVIS W/ 02/06/2018 7:44 PM. TECHNIQUE: Routine helical imaging was performed through the chest in the pulmonary arterial phase. IV Contrast: Yes. Reconstructions: Coronal 3-D MIP reconstructions.Sagittal and coronal. In accordance with CT protocol optimization, one or more of the following dose reduction techniques were utilized for this exam: automated exposure control, adjustment of mA and/or KV based on patient size, or use of iterative reconstructive technique. FINDINGS: Pulmonary Arteries: Technically adequate for evaluation through the segmental arteries. No evidence for acute or chronic pulmonary emboli. Lungs/Pleura: No pneumonia, suspicious nodules, or edema. No effusions or pneumothorax. Mediastinum: No acute aortic syndrome. No cardiac enlargement. No adenopathy. Upper Abdomen: Unremarkable with note of a incompletely imaged known left renal cyst. Other: None. IMPRESSION: Normal pulmonary CT angiogram. No pulmonary emboli. RADIA
[2019-03-13] MEDS ORDERED: IOVERSOL 320 100 ML VIAL IVP ONE ×2 (00:15)
[2019-03-13 01:16] VITALS: BP 95/74
== END 2019-03-13 01:16 | disposition home or self-care (01) ==
LOC: ED 22:15
DX: R06.02 Shortness of breath (principal); R00.0 Tachycardia, unspecified; Z87.19 Personal history of other diseases of the digestive system
CPT/HCPCS: 36415; 71046; 71275; 80053; 83690; 85025; 85379; 93005; 99283; 99284; Q9967

== ENCOUNTER 2019-06-04 02:03 | Emergency (ER) | payer OTHER ==
[2019-06-04] MEDS ORDERED: oxyCODONE 5 MG TABLET PO STA (03:38)
[2019-06-04] MEDS ORDERED: CIPROFLOXACIN 250 MG TABLET PO STA (03:39)
[2019-06-04] MEDS ORDERED: AMOX/CLAV 875 MG/125 MG TABLET PO STA (03:39)
--- NOTE | 2019-06-04 03:42 | ED Physician Documentation ---
History of Present Illness - Stated complaint Stated Complaint: BODY PX, FEVER - Chief complaint Chief Complaint: General - History obtained from History obtained from: Patient, Family - History of Present Illness Timing: Today - Additonal information Additional information: 34-year-old female with a history of ulcerative Crohn's has 2 perianal fistulas and one is actively inflamed and this evening it burst and is begun to drain. She has severe pain associated with this and she is out of her antibiotic. She states that she was taking an antibiotic both Augmentin and Cipro and her fistulas were controlled she is run out of the antibiotic and she is having increasing mass to the new fistula. She is on oxycodone as much as 20 mg/day and she has exceeded that this evening. 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 She has had abdominal surgery with a large abscess. 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 : None HEENT: None Psych: Depression, Anxiety, Obsessive compulsive disorder Musculoskeletal: Fatigue Derm: None - Past Surgical History Past Surgical History: No General: Colonoscopy, EGD - Present Medications Home Medications: Ambulatory Orders Medication Instructions Recorded Confirmed Amitriptyline HCl 10 mg PO DAILY PM 08/02/17 03/12/19 Bupropion HCl [Wellbutrin Xl] 300 mg PO DAILY PM 08/02/17 03/12/19 Folic Acid 2 mg PO DAILY 08/02/17 03/12/19 Furosemide [Lasix] 40 mg PO DAILY 08/02/17 03/12/19 Levonorgestrel [Mirena] 1 each IY ONCE 08/02/17 03/12/19 Potassium Chloride [Klor-Con 10 meq PO DAILY 08/02/17 03/12/19 Sprinkle] Oxycodone HCl 10 mg PO Q4H PRN #14 tablet 10/20/17 03/12/[address] [Voltaren] 1 tab PO BID 03/12/19 03/12/19 Mycophenolate Mofetil 3 tab PO BID 03/12/19 03/12/19 Amox/Clav 875/125 [Augmentin] 1 each PO Q12H #20 tablet 06/04/19 Ciprofloxacin HCl [Cipro] 500 mg PO BID #14 tablet 06/04/19 oxyCODONE [Roxicodone] 5 - 10 mg PO Q4-6H PRN #20 tablet 06/04/19 - Allergies Allergies/Adverse Reactions: Allergies Allergy/AdvReac Type Severity Reaction Status Date / Time gabapentin Allergy Intermediate Anxiety Verified 06/04/19 02:24 hydromorphone [From Dilaudid] Allergy Intermediate Itching Verified 06/04/19 02:24 infliximab [From Remicade] Allergy Intermediate Hives Verified 06/04/19 02:24 adhesive Allergy Hives Verified 06/04/19 02:24 NSAIDS (Non-Steroidal AdvReac Intermediate Unknown Verified 06/04/19 02:24 Anti-Inflamma - Social History Does the pt smoke?: No Smoking Status: Never smoker Does the pt drink ETOH?: No Does the pt have substance abuse?: No - Immunizations Immunizations are current?: Yes - POLST Patient has POLST: No PD ED PE NORMAL - Vitals Vital signs reviewed: Yes (tachy ) - General General: Alert and oriented X 3, No acute distress, Well developed/nourished, O ther (laying in position ) - HEENT HEENT: Atraumatic, PERRL, EOMI - Respiratory Respiratory: No respiratory distress - Rectal Rectal: Other (eyelet cutter present rectal fistula with drainage of serous pink fluid is present and extremely tender. ) - Derm Derm: Normal color, Warm and dry - Extremities Extremities: No deformity, No edema - Neuro Neuro: Alert and oriented X 3, financial engineer 2-12 intact, No motor deficit, No sensory deficit, Normal speech Eye Opening: Spontaneous Motor: Obeys Commands Verbal: Oriented GCS Score: 15 - Psych Psych: Normal mood, Normal affect Results - Vitals Vitals: Vital Signs - 24 hr 06/04/19 06/04/19 06/04/19 02:22 03:41 03:43 Temperature 37.4 C Heart Rate 130 H 88 89 Respiratory 18 19 30 H Rate Blood Pressure 111/70 113/85 H O2 Saturation 100 95 95 06/04/19 03:53 Temperature 37.5 C Heart Rate 128 H Respiratory 20 Rate Blood Pressure 110/68 O2 Saturation 99 Oxygen O2 Source Room air PD MEDICAL DECISION MAKING - ED course Complexity details: reviewed old records, reviewed results, re-evaluated patient, considered differential, d/w patient, d/w family ED course: 34-year-old female with ulcerative Crohn's is on pain management and has active anal fistula and this appears acutely infected and is draining. The patient is administered Augmentin and Cipro orally as well as oxycodone. The oxycodone is ineffective and she requests additional pain control and she is administered IM morphine 10mg with zofran TL. She will have follow-up with her GI specialist. Departure - Departure Disposition: 01 Home, Self Care Clinical Impression: Perianal fistula due to Crohn's disease Condition: Stable Instructions: ED Fistula Cheri Anal Follow-Up: JAMEE MOODY MD [Primary Care Provider] - Prescriptions: Amox/Clav 875/125 [Augmentin] 1 each PO Q12H #20 tablet Ciprofloxacin HCl [Cipro] 500 mg PO BID #14 tablet oxyCODONE [Roxicodone] 5 - 10 mg PO Q4-6H PRN #20 tablet PRN Reason: Pain
[2019-06-04 03:53] VITALS: BP 110/68
[2019-06-04] MEDS ORDERED: ONDANSETRON ODT 4 MG TABLET TL STA (04:01)
[2019-06-04] MEDS ORDERED: MORPHINE 10 MG/ML VIAL IM STA (04:01)
== END 2019-06-04 04:15 | disposition home or self-care (01) ==
LOC: ED 02:03
DX: K50.913 Crohn's disease, unspecified, with fistula (principal); K60.3 Anal fistula
CPT/HCPCS: 96372; 99283; A9270; Q0162

== ENCOUNTER 2020-05-27 17:42 | Emergency (ER) | payer MEDICARE, OTHER ==
[2020-05-27] MEDS ORDERED: SODIUM CHLORIDE 0.9% 1,000 ML IV STA ×4 (18:04→20:02)
[2020-05-27] MEDS ORDERED: fentaNYL 100 MCG/2 ML VIAL IVP STA (18:05)
--- NOTE | 2020-05-27 18:08 | ED Physician Documentation ---
History of Present Illness - Stated complaint Stated Complaint: BODY PX - Chief complaint Chief Complaint: General - History obtained from History obtained from: Patient - History of Present Illness Timing: How many days ago (5) Pain level max: 10 Pain level now: 10 - Additonal information Additional information: 35-year-old female with a history of Crohn's disease presents to the emergency department with all over body pain for the past 5 days. She has been taking her Suboxone at home without relief. She states that this has happened in the past and it was associated with a "Crohn's flare". Has abdominal pain, unchanged from prior. Has a history of a anal/rectal fistula. She states she was started on antibiotics for this last week. No fevers. No chills. No cough. No congestion. Patient states that she is currently on Augmentin and Flagyl. Review of Systems Constitutional: denies: Fever, Chills Throat: denies: Sore throat Cardiac: denies: Chest pain / pressure Respiratory: denies: Cough GI: reports: Nausea, Vomiting, Diarrhea (Chronic, unchanged). denies: Hematemesis, Bloody / black stool : denies: Dysuria, Frequency, Hesitancy Skin: denies: Rash Musculoskeletal: denies: Neck pain, Back pain Neurologic: reports: Generalized weakness. denies: Focal weakness, Numbness, Headache PD PAST MEDICAL HISTORY - Past Medical History Past Medical History: Yes Cardiovascular: Other Respiratory: Shortness of breath Neuro: None Endocrine/Autoimmune: None GI: Ulcers, C.difficile, Hemorrhoids, Crohn's disease, Other POLICE DISPATCHER: None : None HEENT: None Psych: Depression, Anxiety, Obsessive compulsive disorder Musculoskeletal: Fatigue Derm: None - Past Surgical History Past Surgical History: No General: Colonoscopy, EGD - Present Medications Home Medications: Ambulatory Orders Medication Instructions Recorded Confirmed Amitriptyline HCl 30 mg PO DAILY PM 08/02/17 02/07/20 Bupropion HCl [Wellbutrin Xl] 300 mg PO DAILY PM 08/02/17 02/07/20 Folic Acid 2 mg PO DAILY 08/02/17 02/07/20 Furosemide [Lasix] 40 mg PO DAILY 08/02/17 02/07/20 Levonorgestrel [Mirena] 1 each IY ONCE 08/02/17 02/07/[address] [Voltaren] 1 tab PO BID 03/12/19 02/07/20 ondansetron HCL [Zofran] 8 mg PO Q8HR PRN 06/13/19 02/07/20 Buprenorphine HCl/Naloxone HCl 1 film SL BID PRN 08/18/19 02/07/20 [Suboxone 2 mg-0.5 mg Sl Film] Tofacitinib Citrate [Xeljanz] 10 mg PO BID 01/30/20 02/07/20 Prednisone 1 - 3 mg PO DAILY PRN 02/07/20 02/07/20 Tizanidine HCl 2 mg PO DAILY 02/07/20 02/07/20 Oxycodone HCl/Acetaminophen 1 - 2 each PO Q6H PRN #14 tablet 05/27/20 [Percocet 5-325 mg Tablet] predniSONE [Deltasone] 10 mg PO [id number] #42 tab 05/27/20 - Allergies Allergies/Adverse Reactions: Allergies Allergy/AdvReac Type Severity Reaction Status Date / Time gabapentin Allergy Intermediate Anxiety Verified 05/27/20 17:45 hydromorphone [From Dilaudid] Allergy Intermediate Itching Verified 05/27/20 17:45 infliximab [From Remicade] Allergy Intermediate Hives Verified 05/27/20 17:45 adhesive Allergy Hives Verified 05/27/20 17:45 NSAIDS (Non-Steroidal AdvReac Intermediate Unknown Verified 05/27/20 17:45 Anti-Inflamma - Social History Does the pt smoke?: No Smoking Status: Never smoker Does the pt drink ETOH?: No Does the pt have substance abuse?: No - Immunizations Immunizations are current?: Yes - POLST Patient has POLST: No PD ED PE NORMAL - Vitals Vital signs reviewed: Yes - General General: Alert and oriented X 3, No acute distress - HEENT HEENT: Moist mucous membranes - Neck Neck: Supple, no meningeal sign - Cardiac Cardiac: RRR, Strong equal pulses - Respiratory Respiratory: No respiratory distress, Clear bilaterally - Abdomen Abdomen: Soft, Non distended, Other (Mild diffuse tenderness to palpation without peritoneal signs) - Back Back: No CVA TTP, No spinal TTP - Derm Derm: Warm and dry - Extremities Extremities: No edema - Neuro Neuro: Alert and oriented X 3 - Psych Psych: Normal mood, Normal affect Results - Vitals Vitals: Vital Signs - 24 hr 05/27/20 05/27/20 05/27/20 17:45 18:49 19:16 Temperature 36.9 C Heart Rate 128 H 106 H 98 Respiratory 20 16 18 Rate Blood Pressure 131/84 H 115/78 112/80 O2 Saturation 99 100 100 05/27/20 05/27/20 05/27/20 19:36 21:00 21:20 Temperature 37.1 C Heart Rate 91 100 113 H Respiratory 18 18 20 Rate Blood Pressure 104/68 116/83 H 121/77 O2 Saturation 100 100 100 Oxygen O2 Source Room air - Labs Labs: Laboratory Tests 05/27/20 05/27/20 05/27/20 18:10 18:10 18:10 WBC 15.1 H RBC 4.29 Hgb 11.8 L Hct 38.3 MCV 89.3 MCH 27.5 MCHC 30.8 L RDW 15.5 H Plt Count 479 H MPV 8.1 Neut # (Auto) 11.8 H Lymph # (Auto) 2.2 Glynn # (Auto) 0.8 Eos # (Auto) 0.1 Baso # (Auto) 0.1 Absolute Nucleated RBC 0.00 Nucleated RBC % 0.0 Sodium 138 Potassium 3.6 Chloride 101 Carbon Dioxide 28 Anion Gap 9.0 BUN 10 Creatinine 0.8 Estimated GFR (MDRD) 81 L Glucose 86 Lactic Acid 0.8 Calcium 8.9 Total Bilirubin 0.4 AST 16 ALT 15 Alkaline Phosphatase 62 Total Protein 7.3 Albumin 3.3 Globulin 4.0 Albumin/Globulin Ratio 0.8 L Lipase 20 L - Rads (name of study) Ct abd/pelvis Radiology: Prelim report reviewed, EMP read contemporaneously, See rad report PD MEDICAL DECISION MAKING - ED course Complexity details: reviewed results, re-evaluated patient, considered differential, d/w patient ED course: Pain well controlled in the emergency department with morphine and buprenorphine. Patient is well-appearing, nontoxic. Afebrile. No evidence of abscess, bowel obstruction or fistula. We will have her continue her antibiotics at home and have her follow-up with her pain management doctor and her GI doctor tomorrow. Patient counseled regarding signs and symptoms for which I believe and urgent re-evaluation would be necessary. Patient with good understanding of and agreement to plan and is comfortable going home at this time This document was made in part using voice recognition software. While efforts are made to proofread this document, sound alike and grammatical errors may occur. 1. Focal wall thickening of the left proximal sigmoid consistent with a Crohn's exacerbation. 2. No intra-abdominal abscess. No small bowel obstruction. No fistula is identified. Patient states that she is normally tachycardic at baseline. Normal heart rate is around 120 Departure - Departure Disposition: 01 Home, Self Care Clinical Impression: Crohns disease Qualifiers: Gastrointestinal tract location: unspecified location Digestive disease complication type: unspecified complication Qualified Code(s): K50.919 - Crohn's disease, unspecified, with unspecified complications Condition: Good Instructions: ED Inflam Bowel Disease Crohn Follow-Up: Michelle Vazquez PA [Primary Care Provider] - Within 1 week Prescriptions: predniSONE [Deltasone] 10 mg PO [id number] #42 tab Oxycodone HCl/Acetaminophen [Percocet 5-325 mg Tablet] 1 - 2 each PO Q6H PRN #14 tablet PRN Reason: pain Comments: Use the steroids as prescribed. Contact your GI doctor tomorrow to let them know you are in a flare. Return if you worsen. You should also check with your pain management doctor to ensure that the oxycodone is okay for you to take. Do not drink alcohol or drive while on narcotic pain medicine. Note that many narcotic pain relievers also contain tylenol/acetaminophen. Please ensure that your total dose of acetaminophen from all sources does not exceed 3 grams (3000mg) per day. You may constipated on this medication, take a stool softener such as "Colace" twice a day while you are on it. Also recommend a [id number] laxative such as senna or MiraLAX any day that you do not have a bowel movement. If you received narcotic pain medication in the emergency department, do not drive or operate machinery for the next 24 hours.
[2020-05-27 18:15] LABS: BASOPHILS # (AUTO) 0.1 10^3/uL (0.0-0.1); BASOPHILS % (AUTO) 0.3 %; EOSINOPHILS # (AUTO) 0.1 10^3/uL (0.0-0.7); EOSINOPHILS % (AUTO) 0.9 %; HGB - HEMOGLOBIN 11.8 g/dL (12.0-16.0); LYMPHOCYTES # (AUTO) 2.2 10^3/uL (1.5-3.5); LYMPHOCYTES % (AUTO) 14.8 %; MEAN CORPUSCULAR HEMOGLOBIN 27.5 pg (27.0-31.0); MEAN CORPUSCULAR HGB CONC 30.8 g/dL (32.0-36.0); MEAN CORPUSCULAR VOLUME 89.3 fL (81.0-99.0); MEAN PLATELET VOLUME 8.1 fL (7.9-10.8); MONOCYTES # (AUTO) 0.8 10^3/uL (0.0-1.0); NEUTROPHILS # (AUTO) 11.8 10^3/uL (1.5-6.6); NEUTROPHILS % (AUTO) 78.3 %; PLT - PLATELET COUNT 479 10^3/uL (130-450); RED BLOOD COUNT 4.29 10^6/uL (4.20-5.40); RED CELL DISTRIBUTION WIDTH 15.5 % (12.0-15.0); WHITE BLOOD COUNT 15.1 x10^3/uL (4.8-10.8)
[2020-05-27 18:28] LABS: ALBUMIN 3.3 g/dL (3.2-5.5); ALBUMIN/GLOBULIN RATIO 0.8 (1.0-2.2); BILIRUBIN,TOTAL 0.4 mg/dL (0.2-1.0); CALCIUM 8.9 mg/dL (8.5-10.3); CREATININE 0.8 mg/dL (0.4-1.0); TOTAL PROTEIN 7.3 g/dL (6.7-8.2)
[2020-05-27] MEDS ORDERED: IOVERSOL 320 100 ML VIAL IVP ONE ×2 (18:48→19:46)
[2020-05-27] MEDS ORDERED: MORPHINE 10 MG/ML VIAL IVP STA (19:07)
[2020-05-27] MEDS ORDERED: methylPREDNISolone SUCCINATE 125 MG/2 ML VIAL IVP STA (20:01)
[2020-05-27] MEDS ORDERED: BUPRENORPHINE 0.3 MG/ML VIAL IVP ONE (20:01)
--- NOTE | 2020-05-27 20:19 | CT Report ---
PROCEDURE: Abdomen/Pelvis W INDICATIONS: abd pain, vomiting, h/o crohns with rectal fistula CONTRAST: IV CONTRAST: Optiray 320 ml: 100 PO CONTRAST: *NO PO CONTRAST TECHNIQUE: After the administration of contrast, 5 mm thick sections acquired from the diaphragms to the sym physis. 5 mm thick coronal and sagittal reformats were acquired. For radiation dose reduction, the following was used: automated exposure control, adjustment of mA and/or kV according to patient size . COMPARISON: None. FINDINGS: Image quality: Excellent. ABDOMEN: Lung bases: Lung bases are clear. Heart size is normal. Solid organs: The liver has no mass or intrahepatic biliary ductal dilatation. There is focal fat adj acent to the falciform ligament which is unchanged compared to the prior CT. The gallbladder is sneha l with no wall thickening or pericholecystic fluid. Biliary system is non dilated. Pancreas enhances normally. No adrenal nodules. Kidneys demonstrate normal size and enhancement, without hydronephro sis. The left kidney has a 2 cm cyst. Peritoneum and bowel: No free air or free fluid. The distal esophagus and stomach are normal. The sma ll bowel has a normal caliber with a normal appearance and no mass. The patient is status post right hemicolectomy. There is mild diffuse thickening of the sigmoid colon a more focal area of area of inc reased wall thickening and periserosal inflammation in the sigmoid colon proximally. A short loop of colon drapes over the midline and and anastomosis with small bowel in the right pelvis. There is no i ntra-abdominal abscess. No small bowel obstruction. Nodes and vessels: No retroperitoneal or mesenteric adenopathy by size criteria. Aorta and inferior vena cava are normal in size. Miscellaneous: No ventral hernias. PELVIS: Genitourinary: There is a right ovarian cyst measuring 2.0 x 1.5 cm. Miscellaneous: No inguinal pam ias or adenopathy. Bones: No suspicious bony lesions. There is rightward curvature of the lumbar spine. No vertebral b lori compression fractures. IMPRESSION: 1. Focal wall thickening of the left proximal sigmoid consistent with a Crohn's exacerbation. 2. No intra-abdominal abscess. No small bowel obstruction. No fistula is identified. Reviewed by: Gulshan Coreas on 05/27/2020 8:18 PM PST Approved by: Gulshan Coreas on 05/27/2020 8:18 PM PST Station ID: [id number]
[2020-05-27 21:20] VITALS: BP 121/77
[2020-05-27] MEDS ORDERED: oxyCODONE 5 MG TABLET PO STA (21:23)
== END 2020-05-27 21:39 | disposition home or self-care (01) ==
LOC: ED 17:42
DX: K50.10 Crohn's disease of large intestine without complications (principal); R53.1 Weakness
CPT/HCPCS: 36415; 74177; 80053; 83605; 83690; 85025; 96361; 96374; 96375; 99284; 99285; A9270; J0592; Q9967